=== PATIENT | male | born 1955 | race American Indian/Alaskan Native ===

== ENCOUNTER 2021-08-06 11:48 | Outpatient (CLI) | payer MEDICARE ==
[2021-08-06 12:34] LABS: Basophils % (Auto) 0.7 % (0.0-1.8); Eosinophils # (Auto) 0.1 K/mm3 (0.0-0.4); Eosinophils % (Auto) 1.7 % (0.0-4.3); Hematocrit 44.4 % (35.5-45.6); Hemoglobin 14.7 gm/dl (11.8-15.2); Lymphocytes # (Auto) 2.4 K/mm3 (1.2-5.4); Lymphocytes % (Auto) 52.6 % (13.4-35.0); Mean Corpuscular HGB Conc 33 % (32-34); Mean Corpuscular Volume 89 fl (84-94); Monocytes # (Auto) 0.4 K/mm3 (0.0-0.8); Monocytes % (Auto) 8.4 % (0.0-7.3); Platelet Count 137 K/mm3 (140-440); Red Blood Count 4.98 M/mm3 (3.65-5.03)
[2021-08-06 12:44] LABS: Alanine Aminotransferase 20 units/L (7-56); BUN/Creatinine Ratio 18; Blood Urea Nitrogen 20 mg/dL (9-20); Hemolysis Index 11; INR 1.01 (0.87-1.13)
[2021-08-06 12:45] LABS: Partial Thromboplastin Time 25.5 Sec. (24.2-36.6)
--- NOTE | 2021-08-06 17:48 | Electrocardiograph Report ---
[facility] Test Date: 2021-08-06 Test Time: 12:53:42 Pat Name: MIKI ARELLANO Department: Room: Gender: M [employer]: OSIEL : [id number] Requested By: BIBI CINTRON Order Number: [id number] Reading MD: Charli Acevedo Measurements Intervals Ava Rate: 61 P: 44 PA: 154 QRS: 60 QRSD: 71 T: 85 QT: 341 QTc: 343 Interpretive Statements Sinus rhythm Nonspecific T abnormalities, lateral leads No previous ECG available for comparison Electronically Signed On 08-06-2021 17:48:32 EST by Charli Acevedo
== END 2021-08-06 11:49 | disposition home or self-care (01) ==
LOC: LAB 11:48
PROVIDERS: ATTEND Internal Medicine
DX: I10 Essential (primary) hypertension (principal); R53.83 Other fatigue; E78.2 Mixed hyperlipidemia; E11.65 Type 2 diabetes mellitus with hyperglycemia; Z79.01 Long term (current) use of anticoagulants
CPT/HCPCS: 36415; 80053; 85025; 85610; 85730; 93005